=== PATIENT | male | born 2000 | race Caucasian/White ===

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

== ENCOUNTER 2021-08-11 19:29 | Emergency (ER) | payer OTHER ==
[~2021-08-11] VITALS: Ht 177.8 cm; Wt 90.0 kg
[~2021-08-11 19:29] MED LIST: ARIP1TAB6 PO; ATOM60CA PO; BUSP10TA PO; MELA5TAB47 PO; PROAAER10 INH; PROP10TA56 PO; QUET100T2 PO; SERT25TA85 PO
[2021-08-11 19:56] VITALS: BP 140/80
== END 2021-08-11 22:28 | disposition home or self-care (01) ==
LOC: M ED 19:29
DX: F43.0 Acute stress reaction (principal); F32.A Depression, unspecified; F17.200 Nicotine dependence, unspecified, uncomplicated; Z79.899 Other long term (current) drug therapy

== ENCOUNTER 2021-08-13 17:36 | Emergency (ER) | payer OTHER | END 2021-08-13 17:54 | disposition left against medical advice (07) | LOC: M ED 17:36 | DX: Z53.21 Procedure and treatment not carried out due to patient leaving prior to being seen by health care provider (principal) ==

== ENCOUNTER 2022-01-30 19:07 | Emergency (ER) | payer OTHER ==
[~2022-01-30] VITALS: Ht 177.8 cm; Wt 95.0 kg
[2022-01-30 20:21] LABS: HEMATOCRIT 39.2 % (42.0-52.0); HEMOGLOBIN 13.7 g/dl (13.5-17.5); MEAN CORPUSCULAR HGB CONC 34.9 g/dl (32.0-36.5); MEAN CORPUSCULAR VOLUME 83.1 fl (80.0-96.0); PLATELET COUNT, AUTOMATED 410 10^3/uL (150-450); RED BLOOD COUNT 4.72 10^6/uL (4.30-6.10); WHITE BLOOD COUNT 15.6 10^3/uL (4.0-10.0)
[2022-01-30 20:40] LABS: ERYTHROCYTE SEDIMENTATION RATE 43 mm/hr (0-15)
[2022-01-30 20:43] LABS: BLOOD UREA NITROGEN 10 MG/DL (7-18); C REACTIVE PROTEIN QUANTITATIV 8.78 MG/DL (0.00-0.30); CARBON DIOXIDE LEVEL 27 MEQ/L (21-32); CHLORIDE LEVEL 105 MEQ/L (98-107); CREATININE FOR GFR 0.64 MG/DL (0.70-1.30); GLUCOSE, FASTING 94 MG/DL (70-100); POTASSIUM SERUM 3.8 MEQ/L (3.5-5.1); SODIUM LEVEL 136 MEQ/L (136-145)
[2022-01-30 20:53] LABS: MONO SCRN NEGATIVE (NEGATIVE)
[2022-01-30 20:54] LABS: BASO % 0.3 % (0.0-1.0); EOS # 0.2 10^3/uL (0.0-0.5); EOS % 1.6 % (0.0-3.0); LYMPH % 19.8 % (24.0-44.0); MONO # 1.3 10^3/uL (0.0-0.8); MONO % 8.6 % (2.0-8.0); NEUTROPHILS # 10.6 10^3/uL (1.5-8.5); NEUTROPHILS % 69.2 % (36.0-66.0)
[2022-01-30] MEDS ORDERED: predniSONE 20 MG TAB PO ONE (21:05)
[2022-01-30] MEDS ORDERED: AUGMENTIN 875 MG TAB PO ONE (21:05)
[2022-01-30] MEDS ORDERED: AMOX875T2 PO (21:07)
[2022-01-30] MEDS ORDERED: PRED20TA PO (21:07)
[2022-01-30] MEDS ORDERED: ACETAMINOPHEN 325 MG TAB PO ONE (21:10)
[2022-01-30 21:16] VITALS: BP 131/81
== END 2022-01-30 21:17 | disposition home or self-care (01) ==
LOC: M ED 19:07
DX: J36 Peritonsillar abscess (principal); R51.9 Headache, unspecified; F32.A Depression, unspecified; F41.9 Anxiety disorder, unspecified; F90.9 Attention-deficit hyperactivity disorder, unspecified type; F43.10 Post-traumatic stress disorder, unspecified; F17.290 Nicotine dependence, other tobacco product, uncomplicated; Z79.899 Other long term (current) drug therapy
CPT/HCPCS: 36415; 80048; 85027; 85652; 86140; 86308; 87428; 99283; J7512

== ENCOUNTER 2022-02-14 15:46 | Emergency (ER) | payer OTHER ==
[~2022-02-14] VITALS: Ht 177.8 cm; Wt 98.2 kg
[~2022-02-14 15:46] MED LIST changes: +AMOX875T2 PO; +PRED20TA PO
[2022-02-14] MEDS ORDERED: SPIR50TA4 (16:12)
[2022-02-14] MEDS ORDERED: ESTR40VI2 (16:12)
[2022-02-14] MEDS ORDERED: RISP-7 (16:12)
[2022-02-14 18:51] VITALS: BP 128/84
== END 2022-02-14 19:05 | disposition home or self-care (01) ==
LOC: M ED 15:46
DX: J02.9 Acute pharyngitis, unspecified (principal); B34.9 Viral infection, unspecified; J45.909 Unspecified asthma, uncomplicated; R51.9 Headache, unspecified; F32.A Depression, unspecified; F41.9 Anxiety disorder, unspecified; F17.200 Nicotine dependence, unspecified, uncomplicated; Z79.899 Other long term (current) drug therapy

== ENCOUNTER → 2023-01-11 | Outpatient (REF) | payer OTHER ==
[~2023-01-11] MED LIST changes: +ESTR40VI2; +RISP-7; +SPIR50TA4
[2023-01-11 18:28] LABS: BASO # 0.1 10^3/uL (0.0-0.2); BASO % 0.5 % (0.0-1.0); EOS # 0.2 10^3/uL (0.0-0.5); EOS % 1.8 % (0.0-3.0); HEMATOCRIT 41.8 % (42.0-52.0); HEMOGLOBIN 14.4 g/dl (13.5-17.5); LYMPH # 4.2 10^3/uL (1.5-5.0); LYMPH % 33.8 % (24.0-44.0); MEAN CORPUSCULAR HEMOGLOBIN 27.8 pg (27.0-33.0); MEAN CORPUSCULAR HGB CONC 34.4 g/dl (32.0-36.5); MEAN CORPUSCULAR VOLUME 80.7 fl (80.0-96.0); MONO # 0.9 10^3/uL (0.0-0.8); MONO % 7.2 % (2.0-8.0); NEUTROPHILS % 56.5 % (36.0-66.0); PLATELET COUNT, AUTOMATED 495 10^3/uL (150-450); RED BLOOD COUNT 5.18 10^6/uL (4.30-6.10); WHITE BLOOD COUNT 12.5 10^3/uL (4.0-10.0)
[2023-01-11 18:38] LABS: ALKALINE PHOSPHATASE 129 U/L (46-116); ALT/SGPT 33 U/L (7.0-40); AST/SGOT 18 U/L (<34); BILIRUBIN,TOTAL 0.3 MG/DL (0.3-1.2); BLOOD UREA NITROGEN 12 MG/DL (9-23); CALCIUM LEVEL 10.1 MG/DL (8.5-10.1); CARBON DIOXIDE LEVEL 24 MMOL/L (20-31); CHLORIDE LEVEL 101 MMOL/L (98-107); CHOLESTEROL LEVEL 180 MG/DL (<200); CHOLESTEROL RISK RATIO 4.03 (<5); CREATININE FOR GFR 0.63 MG/DL (0.70-1.30); GLOMERULAR FILTRATION RATE > 60.0 (>60); GLUCOSE, FASTING 79 MG/DL (60-100); HDL CHOLESTEROL 44.6 MG/DL (>40); LDL CHOLESTEROL 93.4 MG/DL (<100); NON-HDL-C 135.4 MG/DL; POTASSIUM SERUM 4.7 MMOL/L (3.5-5.1); SODIUM LEVEL 136 MMOL/L (136-145); TOTAL 25(OH) VITAMIN D 17.7 NG/ML (20.0-100.0); TOTAL PROTEIN 7.3 G/DL (5.7-8.2); TRIGLYCERIDES LEVEL 210 MG/DL (<150)
== END ==
LOC: M LAB REF 17:18
PROVIDERS: ATTEND Nurse Practitioner Family
DX: E66.3 Overweight (principal); Z11.9 Encounter for screening for infectious and parasitic diseases, unspecified; E55.9 Vitamin D deficiency, unspecified

== ENCOUNTER → 2023-01-27 | Outpatient (REF) | payer OTHER ==
[~2023-01-27] MED LIST changes: +ERGO500029 PO; -ESTR40VI2; +ESTR40VI2 SC; -RISP-7; +RISP-7 PO; +SERT50TA29 PO; -SPIR50TA4; +SPIR50TA4 PO
== END ==
LOC: M LAB REF 21:00
PROVIDERS: ATTEND Physician Assistant
DX: J02.9 Acute pharyngitis, unspecified (principal)

== ENCOUNTER 2023-02-01 07:27 | Observation (INO) | payer OTHER ==
[~2023-02-01] VITALS: Ht 175.3 cm; Wt 99.0 kg
[2023-02-01] VITALS (7 sets, daily range): BP systolic 127–154; BP diastolic 80–94; TEMP 97–97.3; O2SAT 96–98
[~2023-02-01 07:27] MED LIST changes: +HEPARIN SOD (PORCINE) 5000UNITS/ML 1ML VIAL/SYRINGE SQ ONE; +ceFAZolin SOD 2 GM in IV 1 EA IV ONE
[2023-02-01] MEDS ORDERED: ROCURONIUM BROMIDE 50MG/5ML VIAL As Ordered ONE (07:49)
[2023-02-01] MEDS ORDERED: ONDANSETRON 4MG 2ML VIAL As Ordered ONE (07:49)
[2023-02-01] MEDS ORDERED: LIDOCAINE 2% 100MG/5ML SDV (FOR ANES.) As Ordered ONE (07:49)
[2023-02-01] MEDS ORDERED: SUGAMMADEX SODIUM 500 MG/5 ML VIAL (BRIDION) As Ordered ONE (07:49)
[2023-02-01] MEDS ORDERED: propofoL 200 MG/20 ML VIAL As Ordered ONE ×2 (07:49→08:55)
[2023-02-01] MEDS ORDERED: MIDAZOLAM INJ 2MG/2ML VIAL As Ordered ONE (07:56)
[2023-02-01] MEDS ORDERED: fentaNYL 250 MCG/5 ML INJECTION As Ordered ONE (07:56)
[2023-02-01] MEDS ORDERED: GENTAMICIN SULF 80MG/2ML VIAL As Ordered ONE (08:23)
[2023-02-01] MEDS ORDERED: LR 1,000 ML IV SCH ×2 (08:50→11:10)
[2023-02-01] MEDS ORDERED: ACETAMINOPHEN 1000MG 100ML IV BAG As Ordered ONE (09:39)
[2023-02-01] MEDS ORDERED: ePHEDrine SULFATE 25 MG/5 ML(5MG/ML) SYRINGE As Ordered ONE (10:06)
[2023-02-01] MEDS ORDERED: ONDANSETRON 4MG 2ML VIAL IV PRN ×2 (11:10→11:25)
[2023-02-01] MEDS ORDERED: fentaNYL 100 MCG/2 ML INJECTION IV PRN (11:10)
[2023-02-01] MEDS ORDERED: oxyCODONE 5MG TAB PO PRN (11:10)
[2023-02-01] MEDS ORDERED: traMADol 50 MG TAB PO PRN (11:25)
[2023-02-01] MEDS ORDERED: ACETAMINOPHEN TAB 650MG DOSE (2X325MG) PO PRN (11:25)
[2023-02-01] MEDS: LR 1,000 ML IV SCH (11:25)
[2023-02-01] MEDS ORDERED: PERCOCET 5MG/325MG TAB PO PRN (11:25)
[2023-02-01] MEDS ORDERED: ceFAZolin SOD 2 GM in IV 1 EA IV ONE (14:00)
[2023-02-01] MEDS ORDERED: SPIR100T3 PO (19:10)
[2023-02-01] MEDS ORDERED: med rec comment (19:15)
[2023-02-01] MEDS: busPIRone 10 MG TAB PO SCH (20:58)
[2023-02-01] MEDS: SPIRONOLACTONE 50 MG TAB PO SCH (20:58)
[2023-02-01] MEDS ORDERED: risperiDONE 0.5 MG TAB PO SCH (21:00)
[2023-02-01] MEDS ORDERED: SERTRALINE HCL 25 MG TABLET PO SCH (21:00)
[2023-02-02] MEDS: LR 1,000 ML IV SCH (00:45)
[2023-02-02 02:32] VITALS: BP 116/84; TEMP 97.2; O2SAT 99
[2023-02-02 06:19] VITALS: BP 142/112; TEMP 98.6; O2SAT 98
[2023-02-02 07:21] VITALS: BP 129/90
[2023-02-02] MEDS: SPIRONOLACTONE 50 MG TAB PO SCH (08:49)
[2023-02-02] MEDS: busPIRone 10 MG TAB PO SCH (08:49)
[2023-02-02] MEDS ORDERED: STRATTERA 60 MG PO SCH (09:00)
[2023-02-02] MEDS ORDERED: ATOMOXETINE HCL 40 MG CAP (STRATTERA) PO SCH (09:00)
[2023-02-02] MEDS ORDERED: IBUP-1022 PO (09:26)
[2023-02-02] MEDS ORDERED: ACET1TAB55 PO (09:26)
== END 2023-02-02 11:10 | disposition home or self-care (01) ==
LOC: M SDC 07:27 → M RR INP 07:28 → M MSPAV 12:55 → M MS5PR 17:25
PROVIDERS: ADMIT Plastic Surgery Surgery of the Hand; ATTEND Plastic Surgery Surgery of the Hand
DX: F64.9 Gender identity disorder, unspecified (principal); N64.82 Hypoplasia of breast; F41.9 Anxiety disorder, unspecified; F31.9 Bipolar disorder, unspecified; F60.3 Borderline personality disorder; F43.10 Post-traumatic stress disorder, unspecified; M54.9 Dorsalgia, unspecified; F51.9 Sleep disorder not due to a substance or known physiological condition, unspecified; F17.290 Nicotine dependence, other tobacco product, uncomplicated; Z79.899 Other long term (current) drug therapy; Z79.890 Hormone replacement therapy
CPT/HCPCS: 19325; 87635; 96374; C9290; J0131; J0690; J1100; J1580; J2250; J2405; J3010; L8600; S0020

== ENCOUNTER 2023-06-09 14:21 | Emergency (ER) | payer OTHER ==
[~2023-06-09] VITALS: Ht 177.8 cm; Wt 104.9 kg
[~2023-06-09 14:21] MED LIST changes: +ACET1TAB55 PO; -HEPARIN SOD (PORCINE) 5000UNITS/ML 1ML VIAL/SYRINGE SQ ONE; +IBUP-1022 PO; +SPIR100T3 PO; -ceFAZolin SOD 2 GM in IV 1 EA IV ONE; +med rec comment
[2023-06-09] MEDS ORDERED: BENZOCAINE 20% GEL 9GM TUBE (ANBESOL MAX STRENGTH) TOP ONE (18:40)
[2023-06-09] MEDS ORDERED: LIDOCAINE 2% W/ EPINEPHRINE 1.7 ML DENTAL INJ SM ONE (18:40)
[2023-06-09] MEDS ORDERED: AMOX875T2 PO (19:43)
[2023-06-09] MEDS ORDERED: ACET-897 PO (19:43)
[2023-06-09] MEDS ORDERED: IBUP-1022 PO (19:43)
[2023-06-09 19:50] VITALS: BP 131/82; TEMP 97.1; O2SAT 98
== END 2023-06-09 19:52 | disposition home or self-care (01) ==
LOC: EDSEX 14:21 → M ED 14:21
DX: K02.9 Dental caries, unspecified (principal); Z79.899 Other long term (current) drug therapy

== ENCOUNTER 2023-12-09 01:44 | Emergency (ER) | payer OTHER ==
[~2023-12-09] VITALS: Ht 177.8 cm; Wt 107.3 kg
[~2023-12-09 01:44] MED LIST changes: +ACET-897 PO; -RISP-7 PO; +RISP0.5T82 PO
[2023-12-09 06:01] LABS: BASO % 0.3 % (0.0-1.0); EOS # 0.1 10^3/uL (0.0-0.5); HEMATOCRIT 39.4 % (36.0-47.0); HEMOGLOBIN 13.6 g/dl (12.0-15.5); LYMPH # 4.9 10^3/uL (1.5-5.0); LYMPH % 34.6 % (24.0-44.0); MEAN CORPUSCULAR HEMOGLOBIN 27.3 pg (27.0-33.0); MEAN CORPUSCULAR HGB CONC 34.5 g/dl (32.0-36.5); MEAN CORPUSCULAR VOLUME 79.1 fl (80.0-96.0); MONO # 0.9 10^3/uL (0.0-0.8); NEUTROPHILS # 8.2 10^3/uL (1.5-8.5); NEUTROPHILS % 57.8 % (36.0-66.0); PLATELET COUNT, AUTOMATED 445 10^3/uL (150-450); RED BLOOD COUNT 4.98 10^6/uL (4.00-5.40); WHITE BLOOD COUNT 14.2 10^3/uL (4.0-10.0)
[2023-12-09 06:18] LABS: LIPASE 28 U/L (12-53)
[2023-12-09 06:20] LABS: ALBUMIN 3.8 G/DL (3.2-5.2); ALKALINE PHOSPHATASE 131 U/L (46-116); ALT/SGPT 25 U/L (7.0-40); AST/SGOT 19 U/L (<34); BILIRUBIN,DIRECT < 0.1 MG/DL (<0.4); BILIRUBIN,TOTAL 0.3 MG/DL (0.3-1.2); BLOOD UREA NITROGEN 15 MG/DL (9-23); CARBON DIOXIDE LEVEL 27 MMOL/L (20-31); CHLORIDE LEVEL 105 MMOL/L (98-107); CREATININE FOR GFR 0.65 MG/DL (0.55-1.30); GLOMERULAR FILTRATION RATE > 60.0 (>60); GLUCOSE, FASTING 89 MG/DL (60-100); SODIUM LEVEL 139 MMOL/L (136-145); TOTAL PROTEIN 7.1 G/DL (5.7-8.2)
[2023-12-09 07:33] LABS: HCG, SERUM QUALITATIVE NEGATIVE (NEGATIVE)
[2023-12-09] MEDS ORDERED: ISOVUE-370 76% 100ML VIAL As Ordered ONE (07:49)
[2023-12-09] MEDS: NS 1,000 ML IV ONE (07:51)
[2023-12-09 08:45] LABS: GC DNA AMPLIFICATION NEGATIVE (NEGATIVE)
[2023-12-09 10:07] VITALS: BP 135/84; TEMP 97.3; O2SAT 97
[2023-12-09] MEDS: KETOROLAC 30 MG/ML 1ML VIAL IV ONE (10:13)
[2023-12-09 10:28] LABS: GC DNA AMPLIFICATION NEGATIVE (NEGATIVE)
[2023-12-09] MEDS ORDERED: CIPR-249 PO (10:33)
[2023-12-09 12:11] LABS: HIV 1&2 SCREEN NEGATIVE (NEGATIVE)
== END 2023-12-09 11:14 | disposition home or self-care (01) ==
LOC: EDBD 01:44 → M ED 01:44
DX: R10.30 Lower abdominal pain, unspecified (principal); D72.829 Elevated white blood cell count, unspecified; F41.9 Anxiety disorder, unspecified; F90.9 Attention-deficit hyperactivity disorder, unspecified type; Z79.2 Long term (current) use of antibiotics; Z79.83 Long term (current) use of bisphosphonates; Z79.811 Long term (current) use of aromatase inhibitors; Z79.899 Other long term (current) drug therapy
CPT/HCPCS: 74177; 80048; 80076; 81001; 83690; 84703; 85025; 87389; 87810; 87850; 93041; 96361; 96374; 99284; J1885; Q9967

== ENCOUNTER 2023-12-23 09:09 | Emergency (ER) | payer OTHER ==
[~2023-12-23] VITALS: Ht 177.8 cm; Wt 108.3 kg
[~2023-12-23 09:09] MED LIST changes: +CIPR-249 PO
[2023-12-23 11:43] LABS: BASO % 0.3 % (0.0-1.0); EOS # 0.1 10^3/uL (0.0-0.5); EOS % 0.6 % (0.0-3.0); HEMATOCRIT 40.9 % (36.0-47.0); HEMOGLOBIN 14.1 g/dl (12.0-15.5); LYMPH # 4.1 10^3/uL (1.5-5.0); LYMPH % 26.3 % (24.0-44.0); MEAN CORPUSCULAR HEMOGLOBIN 27.1 pg (27.0-33.0); MEAN CORPUSCULAR HGB CONC 34.5 g/dl (32.0-36.5); MEAN CORPUSCULAR VOLUME 78.7 fl (80.0-96.0); MONO # 0.8 10^3/uL (0.0-0.8); MONO % 5.2 % (2.0-8.0); NEUTROPHILS # 10.6 10^3/uL (1.5-8.5); NEUTROPHILS % 67.3 % (36.0-66.0); PLATELET COUNT, AUTOMATED 483 10^3/uL (150-450); WHITE BLOOD COUNT 15.7 10^3/uL (4.0-10.0)
[2023-12-23 12:02] LABS: LIPASE 28 U/L (12-53)
[2023-12-23 12:04] LABS: ALBUMIN 4.1 G/DL (3.2-5.2); ALKALINE PHOSPHATASE 121 U/L (46-116); ALT/SGPT 35 U/L (7.0-40); AST/SGOT 18 U/L (<34); BILIRUBIN,DIRECT < 0.1 MG/DL (<0.4); BILIRUBIN,TOTAL 0.3 MG/DL (0.3-1.2); TOTAL PROTEIN 7.3 G/DL (5.7-8.2)
[2023-12-23] MEDS ORDERED: ANUC25SU PR (12:23)
[2023-12-23] MEDS ORDERED: CIPR-249 PO (12:23)
[2023-12-23 12:45] VITALS: BP 131/98; TEMP 98; O2SAT 99
== END 2023-12-23 12:46 | disposition home or self-care (01) ==
LOC: EDSEX 09:09 → M ED 09:09
DX: K92.2 Gastrointestinal hemorrhage, unspecified (principal); Z79.2 Long term (current) use of antibiotics; Z79.1 Long term (current) use of non-steroidal anti-inflammatories (NSAID); Z79.899 Other long term (current) drug therapy

== ENCOUNTER → 2023-12-27 | Outpatient (REF) | payer OTHER ==
[~2023-12-27] MED LIST changes: +ANUC25SU PR
[2023-12-27 18:31] LABS: Trichomonas vaginalis (AMP) NOT DETECTED (NEGATIVE)
[2023-12-27 18:56] LABS: GC DNA AMPLIFICATION NEGATIVE (NEGATIVE)
[2023-12-27 19:01] LABS: BASO # 0.1 10^3/uL (0.0-0.2); BASO % 0.4 % (0.0-1.0); EOS # 0.1 10^3/uL (0.0-0.5); EOS % 1.2 % (0.0-3.0); HEMATOCRIT 43.3 % (42.0-52.0); HEMOGLOBIN 14.4 g/dl (13.5-17.5); LYMPH # 3.3 10^3/uL (1.5-5.0); LYMPH % 29.5 % (24.0-44.0); MEAN CORPUSCULAR HGB CONC 33.3 g/dl (32.0-36.5); MEAN CORPUSCULAR VOLUME 81.1 fl (80.0-96.0); MONO # 0.8 10^3/uL (0.0-0.8); MONO % 6.9 % (2.0-8.0); NEUTROPHILS # 6.9 10^3/uL (1.5-8.5); NEUTROPHILS % 61.8 % (36.0-66.0); PLATELET COUNT, AUTOMATED 499 10^3/uL (150-450); RED BLOOD COUNT 5.34 10^6/uL (4.30-6.10); WHITE BLOOD COUNT 11.1 10^3/uL (4.0-10.0)
[2023-12-27 19:38] LABS: THYROID STIMULATING HORMONE 2.598 uIU/ML (0.55-4.78)
== END ==
LOC: M LAB REF 16:29
PROVIDERS: ATTEND Nurse Practitioner Family
DX: Z11.9 Encounter for screening for infectious and parasitic diseases, unspecified (principal)

== ENCOUNTER 2024-01-05 23:02 | Emergency (ER) | payer OTHER ==
[~2024-01-05] VITALS: Ht 180.3 cm; Wt 105.9 kg
[2024-01-05 23:08] VITALS: BP 132/85; TEMP 96.8; O2SAT 97
== END 2024-01-06 01:13 | disposition left against medical advice (07) ==
LOC: M ED 23:02
DX: Z53.21 Procedure and treatment not carried out due to patient leaving prior to being seen by health care provider (principal)

== ENCOUNTER 2024-02-05 01:14 | Emergency (ER) | payer OTHER ==
[~2024-02-05] VITALS: Ht 180.3 cm; Wt 107.6 kg
[2024-02-05 01:14] VITALS: BP 135/88; TEMP 97.3; O2SAT 97
== END 2024-02-05 02:11 | disposition left against medical advice (07) ==
LOC: M ED 01:14
DX: Z53.21 Procedure and treatment not carried out due to patient leaving prior to being seen by health care provider (principal)

== ENCOUNTER 2024-02-17 04:12 | Emergency (ER) | payer OTHER ==
[~2024-02-17] VITALS: Ht 177.8 cm; Wt 108.1 kg
[2024-02-17 05:14] VITALS: BP 128/85; TEMP 98.7; O2SAT 97
== END 2024-02-17 05:37 | disposition left against medical advice (07) ==
LOC: M ED 04:12
DX: Z53.21 Procedure and treatment not carried out due to patient leaving prior to being seen by health care provider (principal)

== ENCOUNTER 2024-03-18 23:28 | Emergency (ER) | payer OTHER ==
[~2024-03-18] VITALS: Ht 180.3 cm; Wt 100.0 kg
[2024-03-19 00:15] VITALS: TEMP 97.8
[2024-03-19 00:22] VITALS: O2SAT 96
[2024-03-19 00:47] LABS: HEMATOCRIT 37.9 % (42.0-52.0); HEMOGLOBIN 13.4 g/dl (13.5-17.5); MEAN CORPUSCULAR HEMOGLOBIN 27.6 pg (27.0-33.0); MEAN CORPUSCULAR HGB CONC 35.4 g/dl (32.0-36.5); MEAN CORPUSCULAR VOLUME 78.1 fl (80.0-96.0); PLATELET COUNT, AUTOMATED 447 10^3/uL (150-450); RED BLOOD COUNT 4.85 10^6/uL (4.30-6.10); WHITE BLOOD COUNT 14.1 10^3/uL (4.0-10.0)
[2024-03-19 01:08] LABS: LIPASE 27 U/L (12-53)
[2024-03-19 01:10] LABS: BLOOD UREA NITROGEN 9 MG/DL (9-23); CALCIUM LEVEL 9.3 MG/DL (8.5-10.1); CARBON DIOXIDE LEVEL 26 MMOL/L (20-31); CHLORIDE LEVEL 107 MMOL/L (98-107); CREATININE FOR GFR 0.68 MG/DL (0.70-1.30); GLOMERULAR FILTRATION RATE > 60.0 (>60); GLUCOSE, FASTING 97 MG/DL (60-100); POTASSIUM SERUM 3.7 MMOL/L (3.5-5.1); SODIUM LEVEL 138 MMOL/L (136-145)
[2024-03-19] MEDS ORDERED: ISOVUE-370 76% 100ML VIAL As Ordered ONE (01:18)
[2024-03-19 01:39] LABS: INR 1.06; PARTIAL THROMBOPLASTIN TIME 33.5 SECONDS (24.8-34.2); PROTHROMBIN TIME 13.5 SECONDS (12.5-14.5)
[2024-03-19 01:53] VITALS: BP 128/81
[2024-03-19 02:07] LABS: ATYPICAL LYMPH 8 % (0-5); EOSINOPHILS 1 % (0-3); LYMPHOCYTES 22 % (16-44); MONOCYTES 7 % (0-5); NEUTROPHILS 61 % (28-66)
[2024-03-19 02:08] LABS: ANISOCYTOSIS 1+; MICROCYTOSIS 1+; PLATELET ESTIMATE INCREASED (NORMAL); POIKILOCYTOSIS 1+
[2024-03-19 02:09] LABS: OVALOCYTES 1+
== END 2024-03-19 02:41 | disposition left against medical advice (07) ==
LOC: EDSEX 23:28 → EDBD 23:28 → M ED 23:28
DX: R11.10 Vomiting, unspecified (principal); K62.5 Hemorrhage of anus and rectum; F41.9 Anxiety disorder, unspecified; F90.9 Attention-deficit hyperactivity disorder, unspecified type; F43.10 Post-traumatic stress disorder, unspecified; Z79.899 Other long term (current) drug therapy; Z79.2 Long term (current) use of antibiotics; Z53.9 Procedure and treatment not carried out, unspecified reason
CPT/HCPCS: 36415; 74174; 80047; 80048; 83690; 85025; 85610; 85730; 86850; 86900; 86901; 99284; Q9967

== ENCOUNTER 2024-10-06 21:57 | Emergency (ER) | payer OTHER ==
[~2024-10-06] VITALS: Ht 180.3 cm; Wt 108.9 kg
[2024-10-06] MEDS: BOOSTRIX VACCINE (TETANUS/DIPHTH/ACEL. PERTUSSIS) 0.5ML SYR IM.IMMUN ONE (23:37)
[2024-10-06] MEDS: DERMABOND TOPICAL SKIN ADHESIVE TOP ONE (23:40)
[2024-10-07] MEDS ORDERED: BACI500O8 TOP (00:22)
[2024-10-07 00:30] VITALS: BP 142/90; TEMP 98.2; O2SAT 98
[2024-10-07] MEDS: IBUPROFEN 600MG TAB PO ONE (00:30)
== END 2024-10-07 00:35 | disposition home or self-care (01) ==
LOC: M ED 21:57
DX: S61.211A Laceration without foreign body of left index finger without damage to nail, initial encounter (principal); S61.213A Laceration without foreign body of left middle finger without damage to nail, initial encounter; S61.215A Laceration without foreign body of left ring finger without damage to nail, initial encounter; W23.1XXA Caught, crushed, jammed, or pinched between stationary objects, initial encounter; Z79.2 Long term (current) use of antibiotics; Z79.1 Long term (current) use of non-steroidal anti-inflammatories (NSAID); Z79.899 Other long term (current) drug therapy; Y92.009 Unspecified place in unspecified non-institutional (private) residence as the place of occurrence of the external cause; Y93.89 Activity, other specified; Y99.9 Unspecified external cause status

== ENCOUNTER 2025-06-19 14:41 | Emergency (ER) | payer OTHER ==
[~2025-06-19] VITALS: Ht 177.8 cm; Wt 100.0 kg
[~2025-06-19 14:41] MED LIST changes: +BACI500O8 TOP; -IBUP-1022 PO; +IBUP600T42 PO
[2025-06-19] MEDS: TETANUS/DIPHTH/ACEL. PERTUSSIS 0.5 ML SYR IM.IMMUN ONE (15:01)
[2025-06-19] MEDS: ACETAMINOPHEN 500 MG TAB PO ONE (16:09)
[2025-06-19 17:24] VITALS: BP 162/88; TEMP 98.2; O2SAT 97
== END 2025-06-19 17:25 | disposition home or self-care (01) ==
LOC: EDSEX 14:41 → EDBD 14:41 → M ED 14:41
DX: S06.0X0A Concussion without loss of consciousness, initial encounter (principal); S01.81XA Laceration without foreign body of other part of head, initial encounter; W22.09XA Striking against other stationary object, initial encounter; Y92.009 Unspecified place in unspecified non-institutional (private) residence as the place of occurrence of the external cause; Y93.89 Activity, other specified; Y99.9 Unspecified external cause status